=== PATIENT | male | born 1960 | race Caucasian/White ===

== ENCOUNTER 2024-03-23 12:28 | Emergency (ER) | payer MEDICARE, OTHER ==
[~2024-03-23] VITALS: Ht 170.2 cm; Wt 55.4 kg
[2024-03-23 13:07] VITALS: BP 179/83; PULSE 96; RESP 18; O2SAT 96
[2024-03-23] MEDS ORDERED: AMOX500C2 PO (13:11)
[2024-03-23] MEDS ORDERED: CLIN1CAP70 PO (13:11)
[2024-03-23] MEDS: cefTRIAXone SOD 1,000 MG VL IM ONE (13:18)
[2024-03-23] MEDS: CLINDAMYCIN HCL 150 MG CAP PO ONE (13:18)
== END 2024-03-23 14:08 | disposition left against medical advice (07) ==
LOC: ER 12:37
DX: L03.113 Cellulitis of right upper limb (principal); F17.210 Nicotine dependence, cigarettes, uncomplicated
CPT/HCPCS: 96372; 99283; J0696